=== PATIENT | female | born 1985 | race African-American/Black ===

== ENCOUNTER 2016-10-29 15:49 | Observation (INO) | payer MEDICAID, OTHER ==
[~2016-10-29] VITALS: Ht 154.9 cm; Wt 102.5 kg
[2016-10-29 17:38] LABS: Acetaminophen 3.3 ug/mL (10-30); Albumin 3.5 g/dL (3.4-5.0); BUN/Creatinine Ratio 12.5; Potassium 3.1 mmol/L (3.5-5.1); Salicylate 1.9 mg/dL (2.8-20.0)
[2016-10-29 17:41] LABS: Bilirubin, Total 0.2 mg/dL (0.2-1.0); Total Protein 8.3 g/dL (6.4-8.2)
[2016-10-29 17:50] LABS: Basophils # (auto) 0 uL; Basophils % (auto) 0.7 % (0.0-2.0); DEFINITIVE VIEW TRANSMISSION; Eosinophils # (auto) 0.3 uL; Eosinophils % (auto) 5.6 % (0.0-7.0); Hematocrit 28.7 % (36.0-46.0); Hemoglobin 8.9 g/dL (12.2-16.2); Lymphocytes # (auto) 2.3 uL; Lymphocytes % (auto) 40.7 % (10.0-50.0); Mean Corpuscular Hemoglobin 18.5 pg (28.0-32.0); Mean Corpuscular Hgb Conc. 30.9 g/dL (32.0-36.0); Mean Corpuscular Volume 59.8 fL (80.0-100.0); Mean Platelet Volume 7.3 fL (7.4-10.4); Monocytes # (auto) 0.4 uL; Monocytes % (auto) 6.3 % (0.0-12.0); Neutrophils # (auto) 2.6 uL; Neutrophils % (auto) 46.7 % (37.0-80.0); Platelet Count (auto) 477 10^3/uL (140-450); White Blood Cell 5.7 10^3/uL (4.4-10.8)
[2016-10-29] MEDS ORDERED: POTASSIUM CHL 20 Meq TABLET PO ONE (18:45)
[2016-10-29 19:49] LABS: Anisocytosis Moderate; Hypochromia Marked; Microcytosis Marked; Platelet Estimate Increased
[2016-10-30] MEDS ORDERED: MORPHINE SULFATE 4 MG/ML SYRG IM ONE (18:30)
[2016-10-30] MEDS ORDERED: ACETAMINOPHEN 325 MG TAB PO ONE (18:30)
[2016-10-30] MEDS ORDERED: ONDANSETRON HCL 4 MG/2 ML VIAL IM ONE (18:30)
[2016-10-30] MEDS ORDERED: HYDROmorphone HCL 2 MG/ML VL IM ONE (21:00)
[2016-10-31] MEDS ORDERED: HYDROmorphone HCL 2 MG/ML VL IM ONE (03:00)
[2016-10-31] MEDS: KETOROLAC TROMETH 60MG/2ML VIAL IM ONE ×2 (09:48→10:04)
[2016-10-31] MEDS ORDERED: HYDROcodone-ACET 5/325MG TAB PO ONE ×2 (10:15→18:15)
[2016-10-31] MEDS ORDERED: LORazepam 0.5 MG TAB PO ONE (20:30)
[2016-11-01] MEDS ORDERED: HYDROcodone-ACET 7.5/325MG TAB PO ONE (08:45)
[2016-11-01] MEDS ORDERED: SODIUM CHLORIDE 0.9% 1,000 ML IV ONE ×3 (11:30→21:00)
[2016-11-01] MEDS ORDERED: KETOROLAC TROMETH 30 MG/ML 1ML VIAL IV ONE ×2 (11:30→21:45)
[2016-11-01] MEDS ORDERED: LORazepam 0.5 MG TAB PO ONE (13:45)
[2016-11-01] MEDS ORDERED: HYDROcodone-ACET 5/325MG TAB PO ONE (17:45)
[2016-11-01 18:25] LABS: Basophils # (auto) 0 uL; Basophils % (auto) 0.5 % (0.0-2.0); DEFINITIVE VIEW TRANSMISSION; Eosinophils # (auto) 0.2 uL; Eosinophils % (auto) 3.9 % (0.0-7.0); Hematocrit 30.9 % (36.0-46.0); Hemoglobin 9.6 g/dL (12.2-16.2); Lymphocytes # (auto) 1.8 uL; Lymphocytes % (auto) 34.7 % (10.0-50.0); Mean Corpuscular Hemoglobin 18.5 pg (28.0-32.0); Mean Corpuscular Hgb Conc. 31.1 g/dL (32.0-36.0); Mean Corpuscular Volume 59.7 fL (80.0-100.0); Mean Platelet Volume 7.5 fL (7.4-10.4); Monocytes # (auto) 0.3 uL; Monocytes % (auto) 5.8 % (0.0-12.0); Neutrophils # (auto) 2.9 uL; Neutrophils % (auto) 55.1 % (37.0-80.0); Platelet Count (auto) 553 10^3/uL (140-450); White Blood Cell 5.2 10^3/uL (4.4-10.8)
[2016-11-01 18:32] LABS: Albumin 3.3 g/dL (3.4-5.0); BUN/Creatinine Ratio 19.4; Calcium 8.2 mg/dL (8.5-10.1); Potassium 3.9 mmol/L (3.5-5.1)
[2016-11-01 18:34] LABS: Bilirubin, Total 0.2 mg/dL (0.2-1.0); Total Protein 8.2 g/dL (6.4-8.2)
[2016-11-01 19:49] LABS: Anisocytosis Moderate; Platelet Estimate Increased
[2016-11-01 19:50] LABS: Hypochromia Marked; Microcytosis Marked; Ovalocytes FEW
[2016-11-01] MEDS ORDERED: D5W/ SOD CHL 0.9%/KCL 20MEQ 1,000 ML IV ONE (21:00)
[2016-11-01] MEDS: LEVETIRACETAM 500 MG TAB PO SCH (21:41)
[2016-11-01] MEDS ORDERED: traZODone HCL 50 MG TAB PO SCH (22:00)
[2016-11-02] MEDS ORDERED: ONDANSETRON HCL 4 MG/2 ML VIAL IV ONE ×2 (03:45→07:45)
[2016-11-02] MEDS ORDERED: HYDROcodone-ACET 5/325MG TAB PO ONE (08:00)
[2016-11-02] MEDS ORDERED: PROMETHAZINE HCL 25 MG/ML 1ML IV ONE (12:00)
[2016-11-02] MEDS: LEVETIRACETAM 500 MG TAB PO SCH (15:20)
[2016-11-02 19:16] VITALS: BP 153/116
[2016-11-02] MEDS ORDERED: ONDANSETRON ODT 4 MG TAB PO ONE (19:45)
[2016-11-02] MEDS ORDERED: ACETAMINOPHEN 325 MG TAB PO ONE (19:45)
== END 2016-11-02 19:43 | disposition short-term general hospital (02) | DRG 812 ==
LOC: ER 15:56 → OVERFLOW 22:47
PROVIDERS: ADMIT Emergency Medicine; ATTEND Emergency Medicine
DX: T50.992A Poisoning by other drugs, medicaments and biological substances, intentional self-harm, initial encounter (principal); F31.9 Bipolar disorder, unspecified; F17.210 Nicotine dependence, cigarettes, uncomplicated; R53.1 Weakness; Z59.0 Homelessness; Y92.89 Other specified places as the place of occurrence of the external cause; X83.8XXA Intentional self-harm by other specified means, initial encounter; Y93.89 Activity, other specified; Y99.8 Other external cause status
CPT/HCPCS: 36415; 80053; 80329; 84702; 85025; 96361; 96372; 96374; 96375; 96376; 99285; G0378; G0434; J1170; J1885; J2270; J2405; J2550; J7030; Q0162